=== PATIENT | male | born 1995 | race Caucasian/White ===

== ENCOUNTER 2016-12-05 21:20 | Emergency (ER) | payer OTHER ==
[2016-12-05 21:26] VITALS: TEMP 98.2; O2SAT 98
--- NOTE | 2016-12-05 22:24 | EDPHY ---
H & P Smoking Status: Current some day smoker Time Seen by Provider: 12/05/16 21:34 HPI/ROS: CHIEF COMPLAINT: head laceration HISTORY OF PRESENT ILLNESS: 20-year-old male presents to the emergency department with a laceration to his head. Patient reports a metal piece from a banister fell onto his head. No loss of consciousness, no neck pain, tetanus is up-to-date as, he remembers the entire accident, friends at bedside report he is acting appropriate. REVIEW OF SYSTEMS: A comprehensive 10 point review of systems is otherwise negative aside from elements mentioned in the history of present illness. (Maru Meléndez) Physical Exam: GEN: Awake, alert, oriented, no acute distress RESP: nl resp effort MSK: No C-spine tenderness Neuro: Neurologically intact SKIN: 2 cm superficial laceration to left parietal scalp (Maru Meléndez) Constitutional: Initial Vital Signs Temperature (C) 36.8 C 12/05/16 21:24 Heart Rate 58 L 12/05/16 21:24 Respiratory Rate 20 12/05/16 21:24 Blood Pressure 119/64 12/05/16 21:24 O2 Sat (%) 98 12/05/16 21:24 O2 Delivery Mode Room Air Allergies/Adverse Reactions: rubella and mumps live virus vaccin Allergy (Severe, Verified 12/05/16 21:24) Other-Enter Comments cephalexin monohydrate [From Keflex] Allergy (Intermediate, Verified 12/05/16 21 :24) Rash mmr vaccine Allergy (Severe, Uncoded 12/05/16 21:24) Other-Enter Comments Home Medications: Medication Instructions Recorded NK [No Known Home Meds] 09/13/16 MDM/Departure - MDM Procedures: Procedure: Laceration repair. Verbal consent was obtained from the patient. The 2 cm laceration on the left parietal scalp was anesthetized using 1% lidocaine with epinephrine. The wound was carefully irrigated by the emergency department quality assurance/r&d lab technician. Next, the wound was prepped and draped in sterile fashion and explored to its base with a gloved finger. There were no deep structures involved. No vascular injury was identified. No foreign bodies were identified. The wound was repaired with kandace 5. The wound repair was simple. The procedure was performed by myself. Tetanus and antibiotic status were addressed. (Maru Meléndez) ED Course/Re-evaluation: I did not see this patient while he was in the emergency department. However his care was discussed with the nurse practitioner while the patient was in the department. I agree with treatment plan and management (Kyle Espinoza) Differential Diagnosis: The differential diagnosis for the patient's head injury included but was not limited to concussion, skull fracture, intra-parenchymal contusion, subarachnoid , subdural and epidural hematoma. (Maru Meléndez) - Depart Disposition: Home, Routine, Self-Care Clinical Impression: Scalp laceration, Minor head injury without loss of consciousness Condition: Good Instructions: Laceration (ED), Head Injury (ED) Additional Instructions: Return to the emergency department in 5-7 days for staple removal, return sooner for any signs of infection, forceful vomiting, confusion, altered gait, any other questions or concerns. Referrals: ZAHIRA STRAUSS [Primary Care Provider] - As per Instructions
[2016-12-05 22:54] VITALS: BP 127/68; PULSE 62; RESP 18
== END 2016-12-05 22:54 | disposition home or self-care (01) ==
PROC: 0HQ0XZZ Repair Scalp Skin, External Approach (ICD-10-PCS; principal; 2016-12-05)
DX: S01.01XA Laceration without foreign body of scalp, initial encounter (principal); F17.200 Nicotine dependence, unspecified, uncomplicated; W20.8XXA Other cause of strike by thrown, projected or falling object, initial encounter

== ENCOUNTER 2017-05-23 08:17 | Emergency (ER) | payer OTHER ==
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
[2017-05-23] MEDS ORDERED: NS 1,000 ML IV ONE (08:40)
[2017-05-23] MEDS ORDERED: ONDANSETRON 4 MG/2 ML VIAL IVP ONE (08:45)
[2017-05-23 08:57] LABS: % IMMATURE GRANULYOCYTES 1.2 % (0.0-1.1); ABSOLUTE IMMATURE GRANULOCYTES 0.07 10^3/uL (0.00-0.10); ADD DIFF? NO; ADD MORPH? NO; ADD SCAN? NO; ATYPICAL LYMPHOCYTE FLAG 10 (0-99); FRAGMENT RBC FLAG 0 (0-99); HEMOGLOBIN 15.5 g/dL (13.7-17.5); LEFT SHIFT FLG 10 (0-99); LIPEMIA HEMOLYSIS FLAG 90 (0-99); MEAN CELL HEMOGLOBIN 30.4 pg (27.9-34.1); MEAN CELL HEMOGLOBIN CONCENTR. 34.4 g/dL (32.4-36.7); MEAN CELL VOLUME 88.2 fL (81.5-99.8); MEAN PLATELET VOLUME 9.6 fL (8.7-11.7); PLATELET CLUMPS FLAG 0 (0-99); PLATELET COUNT 164 10^3/uL (150-400); RED CELL DISTRIBUTION WIDTH 11.9 % (11.5-15.2)
[2017-05-23 09:13] LABS: ALANINE AMINOTRANSFERASE 42 IU/L (21-72); ALBUMIN 4.9 g/dL (3.5-5.0); ALKALINE PHOSPHATASE 81 IU/L (38-126); ANION GAP 16 mEq/L (8-16); ASPARTATE AMINOTRANSFERASE 29 IU/L (17-59); BILIRUBIN,TOTAL 1.8 mg/dL (0.1-1.4); BILIRUBIN-CONJUGATED 0.4 mg/dL (0.0-0.5); BILIRUBIN-UNCONJUGATED 1.4 mg/dL (0.0-1.1); CALCIUM 9.8 mg/dL (8.5-10.4); CARBON DIOXIDE 21 mEq/l (22-31); CHLORIDE 102 mEq/L (97-110); CREATININE 0.8 mg/dL (0.7-1.3); GLOMERULAR FILTRATION RATE > 60; GLUCOSE 92 mg/dL (70-100); POTASSIUM 4.2 mEq/L (3.5-5.2); SODIUM 139 mEq/L (134-144); TOTAL PROTEIN 7.8 g/dL (6.3-8.2)
[2017-05-23 11:53] VITALS: BP 115/85; PULSE 75; RESP 18; TEMP 98.2; O2SAT 95
== END 2017-05-23 11:53 | disposition home or self-care (01) ==
DX: R11.2 Nausea with vomiting, unspecified (principal); R10.84 Generalized abdominal pain; E86.9 Volume depletion, unspecified; F17.200 Nicotine dependence, unspecified, uncomplicated
CPT/HCPCS: 96374; J2405